=== PATIENT | male | born 1945 | race Caucasian/White ===

== ENCOUNTER 2020-01-08 08:49 | Outpatient (CLI) | payer OTHER, SELFPAY ==
--- NOTE | 2020-01-08 09:00 | CT_ITS ---
WS: [id number] Exam: CT chest wo con [id number] Date/Time of Exam: 01/08/2020 9:10 AM Reason For Exam: Pulmonary nodule DLP: 895.[address] scans at [facility] use at least one of these dose optimization techniques: automat ed exposure control; mA and/or kV adjustment per patient size (includes targeted exams where dose is matched to clinical indication); or iterative reconstruction. Comparison to outside high-resolution CT scan performed 08/02/2018. The lungs are hyperinflated with mild emphysematous changes. No suspicious pulmonary mass or nodule i dentified. There are areas of linear scarring in the bilateral lower lobes. No pleural or pericardial effusion. Coronary artery calcifications. There is ectasia of the ascending aorta measuring 4.1 cm a t greatest diameter. This is stable since previous exam. The airway is patent. No significant lymphad enopathy in the chest. Mild calcified pleural plaque formation along the lower posterior right pleura l cavity. No destructive bone lesions are seen. No chest wall defects. CT/CT chest wo con [id number] IMPRESSION: 1. No suspicious pulmonary mass or nodule. No lymphadenopathy in the chest. 2. Emphysematous changes with pulmonary hyperinflation. 3. Other nonemergent findings as detailed above.
== END 2020-01-08 08:50 | disposition home or self-care (01) ==
LOC: RADWPI 08:55
PROVIDERS: PCP Family Medicine; Visit Provider Internal Medicine Critical Care Medicine
DX: R91.1 Solitary pulmonary nodule (principal)
CPT/HCPCS: 71250

== ENCOUNTER 2020-03-23 10:03 | Outpatient (CLI) | payer OTHER, SELFPAY ==
--- NOTE | 2020-03-23 10:12 | CT_ITS ---
WS: [id number] CTA THORACIC AORTA WITH CONTRAST. HISTORY: ASCENDING ANEURYSM, FOLLOW UP ON CT CHEST TECHNIQUE: CT imaging of the thorax is performed with and without contrast. After noncontrast imaging is performed, CT angiogram is performed during injection of Omnipaque 350; 95 mL IV.. Sagittal and c oronal reconstructions, sagittal and coronal MIP imaging is submitted. All CT scans at [facility] use at least one of these dose optimization techniques: automated exposure control; mA and/o r kV adjustment per patient size (includes targeted exams where dose is matched to clinical indicatio n); or iterative reconstruction. DLP: 1504.31 mGycm COMPARISON: 01/08/2020 Mild atherosclerosis and ectasia thoracic aorta. Maximum diameter of the ascending aorta is 4.1 cm. D escending aorta is 2.9 cm at the chela. Calcified plaque and intimal thickening throughout the aorti c arch and descending aorta. No dissection. Normal caliber ascending aorta. Scattered calcifications involving the origins of the great vessels. LEFT vertebral artery arises directly from the aorta. Normal size pulmonary artery. Heart size is normal. No pericardial or pleural effusions. Hyperexpanded lungs with emphysema. There are some very mild interstitial thickening and tree-in-bud airspace disease greatest throughout the RIGHT lung is probably postinflammatory. Very mild changes o f bronchiectasis in the lower lung miramontes bilaterally. No adenopathy. Small hiatal hernia. Mild anterior wedging of T12 with no retropulsion. CT/CT angio chest [id number] IMPRESSION: 1. Ectatic but nonaneurysmal ascending aorta measuring 4.1 cm at its maximum. 2. Normal size descending aorta. 3. Chronic emphysema with tree-in-bud airspace disease on the RIGHT suggesting an acute and airways disease.
[2020-03-23 11:01] LABS: Blood Urea Nitrogen 8 mg/dL (8-23)
[2020-03-23] MEDS: iohexol 350 mg/mL 100 mL Btl IV (11:14)
== END 2020-03-23 10:04 | disposition home or self-care (01) ==
LOC: RADWPI 10:05
PROVIDERS: PCP Family Medicine; Visit Provider Family Medicine
DX: I71.2 Thoracic aortic aneurysm, without rupture (principal)
CPT/HCPCS: 71275; 82565; 84520; Q9967

== ENCOUNTER 2021-01-19 09:40 | Outpatient (CLI) | payer OTHER, SELFPAY ==
--- NOTE | 2021-01-19 | CT_ITS ---
Guided Bronchoscopy Planning CT images; total exam DLP: 1086.81 mGy-cm MTDD
== END 2021-01-19 09:41 | disposition home or self-care (01) ==
LOC: CT 09:41
PROVIDERS: PCP Family Medicine; Visit Provider Internal Medicine Critical Care Medicine
DX: J44.9 Chronic obstructive pulmonary disease, unspecified (principal)
CPT/HCPCS: 71250

== ENCOUNTER → 2021-02-11 13:29 | Outpatient (BNVA) | payer OTHER, SELFPAY | PROVIDERS: PCP Family Medicine; Visit Provider Family Medicine | DX: Z01.812 Encounter for preprocedural laboratory examination (principal); Z20.822 Contact with and (suspected) exposure to COVID-19 | CPT/HCPCS: 87635 ==

== ENCOUNTER 2021-02-17 10:44 | Outpatient (CLI) | payer OTHER, SELFPAY ==
--- NOTE | 2021-02-17 11:32 | PFTS_ITS ---
Date of Study:02/17/21 Date of Dictation: 02/17/2021 MECHANICS: Prebronchodilator forced vital capacity (FVC) is decreased. Prebronchodilator forced expiratory volume in one second (FEV1) is severely decreased. FEV1/FVC is reduced. There is no postbronchodilator study FLOW VOLUME LOOP: Sloping of expiratory limb suggestive of severe airflow obstruction LUNG VOLUMES: TLC is normal. RV is mildly suggestive of severe air trapping DIFFUSING CAPACITY FOR CARBON MONOXIDE: Moderately reduced 44% . INTERPRETATION: The prebronchodilator spirometry consistent with severe obstructive ventilatory disease. Significantly increased RV suggestive of severe air trapping. There is moderate gas transfer defect. Overall constellation of findings consistent with severe emphysema. Clinical correlation recommended. [facility]
== END 2021-02-17 10:45 | disposition home or self-care (01) ==
PROVIDERS: PCP Family Medicine; Visit Provider Internal Medicine Critical Care Medicine
DX: J44.9 Chronic obstructive pulmonary disease, unspecified (principal)
CPT/HCPCS: 94010; 94618; 94726; 94729

== ENCOUNTER → 2021-06-07 12:46 | Outpatient (BNVA) | payer OTHER, SELFPAY | PROVIDERS: PCP Family Medicine; Visit Provider Internal Medicine Critical Care Medicine | DX: J44.9 Chronic obstructive pulmonary disease, unspecified (principal); J96.11 Chronic respiratory failure with hypoxia; R91.1 Solitary pulmonary nodule; Z87.891 Personal history of nicotine dependence | CPT/HCPCS: 80048; 99214 ==

== ENCOUNTER → 2021-06-09 08:51 | Outpatient (BNVA) | payer OTHER, SELFPAY | PROVIDERS: PCP Family Medicine; Visit Provider Internal Medicine Cardiovascular Disease | DX: Z20.822 Contact with and (suspected) exposure to COVID-19 (principal) | CPT/HCPCS: 87635 ==

== ENCOUNTER 2021-06-14 13:58 | Inpatient (IN) | payer OTHER, SELFPAY ==
[2021-06-10 12:34] VITALS: BMI 27.7
[2021-06-14] VITALS (67 sets, daily range): BP systolic 124–166; BP diastolic 61–84; PULSE 74–95; RESP 12–27; TEMP 36.4–36.8; O2SAT 83–96
--- NOTE | 2021-06-14 10:00 | P.ANESASSM_ITS ---
Pre-Anesthetic Assessment Height/Weight: Height 1.75 m Weight 85.275 kg Preop Diagnosis: Severe emphysema, COPD Operation Date: 06/14/21 10:40 Proposed Procedures p Bronchoscopy for lung volume reduction 6689(Not Applicable) - Judah Echeverria MD Familial anesthetic complications: Hx of nausea and diaphoresis from morphine, otherwise no complications Was Beta Jerrell taken within 24 hours: N/A Was Clonidine taken within 24 hours: N/A Last intake: 06/13/2021 Social No alcohol and No tobacco Former smoker, asbestos exposure related lung disease per patient Exam alert, oriented x 3 and regular rate & rhythm B/L lung sounds diminished Airway Submandibular: within normal limits Cervical ROM: within normal limits Mallampati: Class II Dentition: false Pulmonary Chronic Obstructive Pulmonary Disease Hx of respiratory failure on PRN O2 at home CV/HEM None reported METS = 4 Able to go up 2 flights of stairs w/o CP, some SOB None reported Hepatic None reported GI None reported Metabolic None reported Musc/skel None reported Neuropsych None reported Anesthetic Plan ASA status: 3 (76 year old male with chronic respiratory failure on home O2) Anesthesia: Anesthesia Evaluation and General Other: We discussed risk and benefits of general anesthesia including PONV, sore throat (sometimes severe), corneal abrasion, positioning and peripheral nerve injuries, life threatening allergic reaction, post operative ICU admission requiring prolonged intubation, stroke, heart attack, , and rare incidences of recall. Patient consents to proceed with general anesthesia. Risk of > 500 ml blood loss (7ml/kg in children): No Medications/Allergies Home Medications Medication Instructions Recorded Confirmed Last Taken Type rosuvastatin 20 mg tablet 10 mg PO BEDTIME tab 12/31/19 06/10/21 Unknown History albuterol sulfate 90 mcg/actuation 1 puff INHALATION QID PRN #18 gm 04/01/20 06/10/21 Unknown Rx aerosol inhaler (Ventolin HFA) tiotropium 2.5 mcg-olodaterol 2.5 2 puff INHALATION DAILY 90 Days 03/07/21 06/10/21 Unknown Rx mcg/actuation mist for inhalation #12 g (Stiolto Respimat) Allergies Allergy/AdvReac Type Severity Reaction Status Date / Time No Known Allergies Allergy Verified 06/10/21 12:31 [facility] Anesthesia Medical History Chronic obstructive pulmonary disease Tuberculosis Surgical History H/O vasectomy History of knee replacement History of thoracic surgery Hx of cataract surgery Family History Other CAD (coronary artery disease) Cancer Diabetes Social History Smoking and tobacco status: former smoker Quit status (tobacco): has quit using tobacco Year quit tobacco: 1974 - 1PPD x 20 Years Former quit date comment: started at age 9 Alcohol intake: current Alcohol intake frequency: holidays/special occasions only Lives independently: Yes Household members: none Marital status: Single Current occupational status: retired History of recent travel: No Current gender identity: Male Data Anesthesia Cardiac Studies: No Data to Display
[2021-06-14] MEDS: sodium chloride 0.9% 1,000 ML 30 ML IV (10:16)
--- NOTE | 2021-06-14 12:07 | W.PM.OPSUD ---
Surgery/Procedure H&P Update DATE OF PROCEDURE: June 14, 2021 DATE H&P PERFORMED: 06/07/21 PREOP DIAGNOSIS: Severe emphysema, COPD PRIMARY INDICATION FOR PROCEDURE: Severe emphysema, COPD PLANNED PROCEDURE: Bronchoscopic lung volume reduction of the left lower lobe. Operation Date: 06/14/21 10:40 Proposed Procedures p Bronchoscopy for lung volume reduction 7704(Not Applicable) - Judah Echeverria MD
[2021-06-14] MEDS: lidocaine 1% INJ 20 mL XX (12:44)
--- NOTE | 2021-06-14 13:38 | PC.NURSE ---
4 size 9 valves and 2 size 7 valves placed in patients left lower lung. Valve information/identification: 1. REF: SVS-V9-00 LOT: [id number] 2. REF: SVS-V9- LOT: [id number] 3. REF: SVS-V9- LOT: [id number] 4. REF: SVS-V9- LOT: [id number] 5. REF: SVS-V7-00 LOT:[id number] 6. REF: SVS-V7-00 LOT: [id number]
--- NOTE | 2021-06-14 14:27 | PC.NURSE ---
Patient arrived to ICU at 1400. V/S stable
--- NOTE | 2021-06-14 15:30 | XR_ITS ---
WS: [id number] XR chest 1V portable [id number] REASON FOR EXAM: post bronchoscopy FINDINGS: Coarse reticular interstitial opacities throughout both lungs with irregular aeration compatible with obstructive lung disease. Multiple small occlusive devices are seen overlying the left lower lung with associated atelectasis. No left pneumothorax or hydropneumothorax. No acute abnormality of the right lung. XR/XR chest 1V portable [id number] IMPRESSION: Post bronchoscopy directed left lung procedure with no pneumothorax or hydropne umothorax.
--- NOTE | 2021-06-14 16:21 | ANE.PACU2 ---
Inpatient post-anesthesia follow up: Airway intact: Yes Vital signs: Temperature 97.6 F Pulse Rate 87 Respiratory Rate 16 Blood Pressure 148/84 Pulse Oximetry 93 Oxygen Delivery Me thod [ Nasal Cannula Current Rate & Del ramiro] Oxygen Delivery Me thod Nasal Cannula Oxygen Flow Rate [ Current Rate 3 & Delivery] Oxygen Flow Rate 2 Fraction of Inspir ed Oxygen Hydration adequate: Yes Nausea and vomiting: No Pain level: 1 Mental status: Baseline
--- NOTE | 2021-06-14 17:03 | PM.OP ---
Operative Report Date of procedure: June 14, 2021 Pre-op diagnosis: Preop Diagnosis Severe emphysema, COPD Brief History: This is 76-year-old gentleman coming in for bronchoscopic lung volume reduction of left lower lobe for severe COPD, emphysema. Procedure: Name of the procedure: Bronchoscopy inspection of the airway, endobronchial aspiration valve placement in the left lower lobe for bronchoscopic lung volume reduction. Indication: Severe emphysema, severe airflow obstruction with air trapping, chronic hypoxic respiratory failure Anesthesia: General Description of the procedure: The patient was positioned optimally. He underwent endotracheal tube placement and general anesthesia. The bronchoscope was passed through the endotracheal tube till lower trachea was visible. The lower trachea, chela, right and left mainstem bronchi anesthetized with 1% lidocaine. In a systematic way, bilateral airways were then examined. The bronchoscope was introduced into the left mainstem bronchus. The left upper lobe, lingula and lower lobe bronchi were normal. There was evidence of bronchiectasis, mild mucosal erythema and friable airways. The bronchoscope was introduced to the right mainstem bronchus. The right upper lobe, middle lobe and lower lobe bronchi were examined. Similar erythema and bronchiectasis was noted. There was mild mucus throughout the airways. Using the patented balloon, measurements were performed for the left lower lobe segmental and subsegmental bronchi. The anterobasilar, lateral and posterior segments needed total of four 9 mm valves. The superior segment was measured at the level of trifurcation of the superior segment bronchus. There are measured as 7 mm valves. Four 9 mm aspiration valves were deployed sequentially in the anterobasilar, lateral and posterior segmental bronchi. Were able to deploy to 7 mitral valves in the trifurcation of the superior segmental bronchus but we could not reach the third branch for valve placement. Complications: There is no immediate complications. Chest x-ray: Postprocedure chest x-ray revealed partial atelectasis of the left lower lobe. No pneumothorax was noted
--- NOTE | 2021-06-14 17:09 | PM.HP ---
Providers/Chief Complaint Admitting Physician: Judah Echeverria MD Primary Care Provider: Alba Longoria MD Chief Complaint: Post bronchoscopic lung volume reduction History of Present Illness This is a 76-year-old gentleman with gold class B COPD coming in for bronchoscopic lung volume reduction procedure. Patient had a CT scan evaluation in January 2021 and the left lower lobe was found to be a potential target. His pulmonary function test showed an FEV1 FVC ratio of 38% with FEV1 of 1.15 L which was 39% patient forced vital capacity of 3.02 L which is 76% of predicted.? His DLCO was moderately reduced at 57%. His latest pulmonary function test from February 2021 revealed an FEV1 FVC ratio of 38% with FEV1 of 1 L which is 34% of predicted and a forced vital capacity of 2.63 L which is 68% of predicted.? His total lung capacity is 106% and residual volume of 180%.? His DLCO is moderately reduced at 44%. The patient has no significant past medical history other than hyperlipidemia. At baseline, the patient has chronic cough, sputum production, wheezing and exertional shortness of breath and he uses Stiolto. He is also using oxygen with exertion at nighttime. The patient also has pulmonary nodule.? He has been following up with the physician at [facility] in [place] however this time he was not able to see them.? His last CT scan in March 2020 did not reveal any suspicious pulmonary nodule.? There was also no lung nodule on the CT scan for bronchoscopic lung volume reduction evaluation. The patient underwent the endoscopic lung volume reduction procedure under general anesthesia. I was able to deploy the valve in the anterobasilar, lateral and posterior segmental bronchus of the left lower lobe. However the superior segment bronchus trifurcated into 3 branches and I was able to deploy the valve into. A chest x-ray following the procedure revealed reduction in lung volume on the left side. However, the patient is going to need additional procedure to block of the entire left superior bronchus. The patient was seen and examined in the ICU. The patient was comfortable without any significant chest pain. His family was at bedside. Review of Systems Narrative: General: No fevers chills night sweats or fatigue Skin: No rash HEENT: No nasal congestion, rhinitis, sinusitis, sneezing Neck: There is no neck swelling Respiratory: Cough, sputum production, wheezing and exertional shortness of breath Cardiovascular: No chest pain, palpitation or lower extremity edema. Gastrointestinal: No abdominal pain, nausea, vomiting Musculoskeletal: No joint pain or swelling Neurological: Patient is awake alert and oriented x3, no paralysis, gross motor function is normal. Psychiatric: No anxiety or depression. Medications/Allergies Home Medications Medication Instructions Recorded Confirmed Last Taken Type rosuvastatin 20 mg tablet 10 mg PO BEDTIME tab 12/31/19 06/10/21 06/13/21 History albuterol sulfate 90 mcg/actuation 1 puff INHALATION QID PRN #18 gm 04/01/20 06/10/21 06/13/21 Rx aerosol inhaler (Ventolin HFA) tiotropium 2.5 mcg-olodaterol 2.5 2 puff INHALATION DAILY 90 Days 03/07/21 06/10/21 06/13/21 Rx mcg/actuation mist for inhalation #12 g (Stiolto Respimat) Allergies Allergy/AdvReac Type Severity Reaction Status Date / Time No Known Allergies Allergy Verified 06/10/21 12:31 PFSH Acute PFSH: Medical History Chronic obstructive pulmonary disease Tuberculosis Surgical History H/O vasectomy History of knee replacement History of thoracic surgery Hx of cataract surgery Family History Other CAD (coronary artery disease) Cancer Diabetes Social History Smoking and tobacco status: former smoker Quit status (tobacco): has quit using tobacco Year quit tobacco: 1974 - 1PPD x 20 Years Former quit date comment: started at age 9 Alcohol intake: current Alcohol intake frequency: holidays/special occasions only Lives independently: Yes Household members: none Marital status: Single Current occupational status: retired History of recent travel: No Current gender identity: Male Vitals/I&O/Wt Last Vital Signs Temp 97.6 F 06/14/21 14:05 Pulse 87 06/14/21 14:46 Resp 16 06/14/21 14:10 BP 148/84 06/14/21 14:10 Pulse Ox 93 06/14/21 14:46 Weight last 48 hrs Weight 186 lb 2 oz Physical Exam Narrative: General: Patient is awake alert and oriented, in no acute distress. Neck: No JVD Respiratory: Inspection: No visible deformity of the chest wall Palpation: Trachea is mildly deviated to the right, bilateral symmetric but reduced expansion Percussion: Bilateral tympanic percussion note both anterior and posteriorly Auscultation: Reduced breath sound bilaterally, crackles at left lower lung base, no wheezing or rhonchi Cardiovascular: Regular rate and rhythm, S1-S2 present, no murmur, no peripheral edema Abdomen: Soft, nontender, nondistended, positive bowel sound Skin: No rash Lymphatic: The axillary and inguinal lymph node groups are not examined Neuro: Mental status is normal, no gross cranial nerve deficit, normal motor and coordination. A&P Assessment and plan (1) Chronic obstructive pulmonary disease: This is a 76-year-old gentleman with gold class B COPD. His pulmonary function test is consistent with severe airflow obstruction. The patient is on Stiolto at baseline. He underwent bronchoscopic lung volume reduction of left lower lobe today. Unfortunately I was not able to occlude all airways. The plan is for him to go back to the OR tomorrow for additional blockage of the left superior segment bronchus. For now, I will start the patient on prednisone, levofloxacin. He will continue with DuoNeb and Pulmicort nebulization. DVT and GI prophylaxis. The patient will be on bedrest today. The post procedure chest x-ray did not reveal any evidence of pneumothorax. He will be monitored and managed closely in the ICU for development of pneumothorax. I will be available for any decline in his condition. The chest tube is in the room. Status: Acute (2) Chronic respiratory failure with hypoxia: The patient uses oxygen at home with exertion and at night. Will provide supplemental oxygen to maintain an oxygen saturation of 88% and above. Status: Acute Attestations Medical Necessity Statement*: The patient will need to be closely monitored and managed for high risk of developing pneumothorax. Coding Level of Care Code Acute Trade Union Official for [facility] Tim Diagnoses Chronic obstructive pulmonary disease J44.9 Chronic respiratory failure with hypoxia J96.11
[2021-06-14] MEDS: predniSONE 20 mg Tablet 40 MG PO (17:45)
[2021-06-14] MEDS: levoFLOXacin 750 mg Tablet PO (17:45)
[2021-06-14] MEDS: enoxaparin 40 mg/0.4 mL Syringe SUBCUT (17:45)
--- NOTE | 2021-06-14 18:03 | PC.NURSE ---
Patient alert and orientated no changes this shift. Family at bedside most of the afternoon. Plans to go back to surgery tomorrow for another procedure with Dr. Echeverria. NPO after midnight.
[2021-06-14] MEDS: atorvastatin 40 mg Tablet 20 MG PO (20:01)
[2021-06-14] MEDS: ipratropium-albuterol 3 mL Neb INHALATION (20:44)
[2021-06-14] MEDS: budesonide 0.5 mg/2 mL Neb INHALATION (20:44)
[2021-06-14] MEDS: ondansetron 2 mg/ML SDV 2 mL 4 MG IVP (21:06)
--- NOTE | 2021-06-14 22:06 | PC.NURSE ---
nausea and bloating have resolved.
--- NOTE | 2021-06-14 22:39 | PC.NURSE ---
Lung sounds diminished throughout, but less air movement heard throughout left lung.
[2021-06-15] VITALS (40 sets, daily range): BP systolic 108–146; BP diastolic 55–87; PULSE 68–99; RESP 10–25; TEMP 36.7–37.1; O2SAT 75–94
--- NOTE | 2021-06-15 01:26 | PC.NURSE ---
Pt ambulated to rest room on room air. Pt states that he ambulates at night on room air when home. Longer oxygen tubing provided, pt agrees to ambulate with oxygen.
--- NOTE | 2021-06-15 04:00 | XR_ITS ---
WS: [id number] XR chest 1V portable [id number] REASON FOR EXAM: Post surgical FINDINGS: Chest is unchanged compared to the previous day with small occlusive appearing devices in the medial lower left lung zone with associated presumed atelectasis. Remainder of the lung miramontes compatible with obstructive lung disease. No other acute findings. No pneumothorax. XR/XR chest 1V portable [id number] IMPRESSION: Stable chest.
[2021-06-15] MEDS: ipratropium-albuterol 3 mL Neb INHALATION ×4 (04:33→20:08)
--- NOTE | 2021-06-15 04:37 | PC.NURSE ---
Pt reports that he coughed up a raisin sized blood clot. In the future, pt will show nursing staff any sputum.
[2021-06-15] MEDS: budesonide 0.5 mg/2 mL Neb INHALATION ×2 (08:34→20:08)
[2021-06-15 09:28] LABS: Basophils % 0.3 %; Hematocrit 40.9 % (42.0-52.0); Hemoglobin 12.9 g/dL (11.7-16.6); Lymphocytes # 1.3 10^3/uL (0.8-4.8); Lymphocytes % 12.7 %; Mean Corpuscular HGB Conc 31.5 g/dL (30.0-36.0); Mean Corpuscular Hemoglobin 29.3 pg (28.0-34.0); Mean Corpuscular Volume 92.7 fl (80-94); Mean Platelet Volume 9.8 fL (7.4-10.4); Monocytes # 0.8 10^3/uL (0.2-0.9); Monocytes % 7.8 %; Neutrophils # 8.26 10^3/uL (1.8-7.7); Neutrophils % 78.6 %; Nucleated Red Blood Cells % 0 %; Platelet Count 244 10^3/cmm (130-400); Red Blood Count 4.41 10^6/uL (4.1-5.3); Red Cell Distribution Width 12.6 % (12.1-15.1); White Blood Count 10.5 10^3/uL (4.0-10.0)
[2021-06-15 09:49] LABS: Alanine Aminotransferase 17 U/L (0-41); Alkaline Phosphatase 65 IU/L (40-130); Anion Gap 14.3 (5-19); Aspartate Amino Transferase 15 U/L (0-40); Blood Urea Nitrogen 14 mg/dL (8-23); Calcium 9.4 mg/dL (8.5-10.5); Carbon Dioxide 27 mmol/L (22-29); Chloride 104 mmol/L (98-107); Globulin 3.3 g/dL (1.3-4.6); Glucose 161 mg/dL (65-115); Osmolality Calculated 296 mOsm/kg (285-295); Potassium 4.3 mmol/L (3.5-5.1); Sodium 141 mmol/L (136-145); Total Bilirubin 0.2 mg/dL (0.15-1.2); Total Protein 7.3 g/dL (6.6-8.7)
[2021-06-15 10:01] LABS: Glucose Point of Care 144 mg/dL (70-110)
[2021-06-15] MEDS: predniSONE 20 mg Tablet 40 MG PO (10:04)
[2021-06-15] MEDS: pantoprazole DR 40 mg Tablet PO (10:04)
[2021-06-15] MEDS: levoFLOXacin 750 mg Tablet PO (10:05)
--- NOTE | 2021-06-15 12:09 | PC.CHAP ---
Pastoral Care Encounter/Spiritual Assessment Type of Contact [] Declined maritime engineer visit [] Patient/Family/Request visit [] Outpatient visit [] Follow-up visit [] Physician referral [] Code/Alert [x] Routine visit [] Staff referral [] Actively dying [] Patient sleeping [] Family support [] [] Out of room [] Palliative care [] [] Receiving care in room [] Pre-surgical visit [] Trauma [] Long length of stay [x] ICU visit [] Other: Relational/Emotional Strength [] Patient feels connected with others/family/visitors/staff [] Distress [] Loneliness/isolation [] Abandonment Spirituality of Patient [] Person of [place] [] Attends Religion of their [place] [] Believes in Prayer [] Reads Bible or Mormon materials [] There are Spiritual issues to be addressed Turner Machine Operator Interventions [x] Prayer [] Active listening [] Non-anxious presence [] Spiritual/emotional support [] Crisis/trauma care [] Spiritual counseling [] Bereavement support [] Provided bereavement packet [] Provided Bible/devotional materials [] Provided toy/stuffed animal, coloring book to patient or family member [] Provided Communion [] Anointing/Hermon [] Salvation [x] Completed spiritual assessment [] Other: Impact on Illness or Injury [] Angry [] Fearful [] Anxious [] Often cries [] Exhaustion [] Unable to work [] Unable to attend shinto [] Unable to walk/stand [] Unable to read [] Unable to drive [] Unable to eat/drink [] Unable to sleep [] Unable to be with family [] Patient intubated [] Other: Summary Time spent with patient
--- NOTE | 2021-06-15 12:48 | P.ANESUD_ITS ---
Pre-Anesthetic Update Pre-Anesthetic Assessment: Date of Surgery/Procedure: 06/15/21 Preop Delores gnosis: Severe emphysema, COPD Proposed Procedure: Operation Date: 06/14/21 10:40 Proposed Procedures p Bronchoscopy for lung volume reduction 7704(Not Applicable) - Judah Echeverria MD Operation Date: 06/15/21 12:35 Proposed Procedures p Endobronchial Valve Placement(Not Applicable) - Judah Echeverria MD Any changes to Pre-Anesthetic Assessment?: No Last Intake: Intake Last Liquid Date 06/13/21 Last Liquid Time 23:45 Last Solid Date 06/13/21 Last Solid Time 19:00 Labs Last 48hrs: Short CBC 06/15/21 Range/Units 09:01 WBC 10.5 H (4.0-10.0) 10^3/ uL Hgb 12.9 (11.7-16.6) g/dL Hct 40.9 L (42.0-52.0) % MCV 92.7 (80-94) fl Plt Count 244 (130-400) 10^3/c mm Neut % (Auto) 78.6 % Neut # (Auto) 8.26 H (1.8-7.7) 10^3/u L BMP 06/15/21 09:01 Sodium 141 Potassium 4.3 Chloride 104 Carbon Dioxide 27 BUN 14 Creatinine 0.6 L Glucose 161 H Calcium 9.4 Liver Function 06/15/21 Range/Units 09:01 Total Bilirubin 0.2 (0.15-1.2) mg/dL AST 15 (0-40) U/L ALT 17 (0-41) U/L Alkaline Phosphata se 65 (40-130) IU/L Albumin 4.0 (3.5-5.2) g/dL Vitals: Temperature 98.1 F 06/15/21 08:00 Temperature Source Oral 06/15/21 08:00 Pulse Rate 94 06/15/21 12:30 Pulse Rhythm 06/15/21 08:00 Pulse Strength 3+ Normal 06/15/21 08:00 Respiratory Rate 16 06/15/21 12:30 Respiratory Effort Non-Labored 06/15/21 08:00 Respiratory Depth Normal 06/15/21 08:00 Respiratory Patter n 06/14/21 14:05 Blood Pressure 124/62 06/15/21 12:30 Blood Pressure Christiane n 82 06/15/21 12:30 Pulse Oximetry 92 06/15/21 12:30 Oxygen Delivery Me thod 06/15/21 08:40 Oxygen Flow Rate 2 06/15/21 06:00 Fraction of Inspir ed Oxygen 2 06/15/21 08:40 Cardiac Studies: No Data to Display
[2021-06-15] MEDS: sodium chloride 0.9% 1,000 ML 30 ML IV (13:10)
[2021-06-15] MEDS: lidocaine 1% INJ 20 mL XX (13:20)
--- NOTE | 2021-06-15 13:45 | PC.NURSE ---
Pt transferred back to ICU 9 via bed. Arrived in room at 1333. Denies pain or needs. VSS. Bedside report given regarding procedure.
--- NOTE | 2021-06-15 14:22 | XRR_ITS ---
PROCEDURE INFORMATION: Exam: XR Chest Exam date and time: 06/15/2021 2:31 PM Age: 76 years old Clinical indication: Device placement; Other: Post bronchoscopy; Prior surgery; Surgery date: Post-operative (0-2 days); Additional info: Post procedure TECHNIQUE: Imaging protocol: XR of the chest. Views: 1 view. COMPARISON: CR XR chest 1V portable [id number] 06/15/2021 4:26 AM FINDINGS: Lungs: Mild coarsening of the lung parenchyma. No consolidation. Occlusive devices again seen overlying the left lower lung. Pleural spaces: No pleural effusion. No pneumothorax. Heart/Mediastinum: No cardiomegaly. Bones/joints: Visualized osseous structures are intact. XR/XR chest 1V portable [id number] IMPRESSION: Stable exam, no significant interval change.
--- NOTE | 2021-06-15 14:34 | P.OP_ITS ---
Operative Report Date of procedure: June 15, 2021 Pre-op diagnosis: Preop Diagnosis Severe emphysema, COPD Preop Diagnosis Severe emphysema, COPD Brief History: This is a 76-year-old gentleman who underwent bronchoscopic lung volume reduction of the left lower lobe yesterday coming back for a repeat procedure for occlusion of the left superior segment of the lower lobe endobronchial valve placement. Procedure: Name of the procedure: Bronchoscopy inspection of the airway, endobronchial aspiration valve placement in the superior segment of left lower lobe. Indication: Severe emphysema, severe airflow obstruction with air trapping, chronic hypoxic respiratory failure Anesthesia: General Description of the procedure: The patient was positioned optimally. He underw ent endotracheal tube placement and general anesthesia. The bronchoscope was passed through the endotracheal tube till lower trachea was visible. The lower trachea, chela, right and left mainstem bronchi anesthetized with 1% lidocaine. In a systematic way, bilateral airways were then examined. The bronchoscope was introduced to the right mainstem bronchus. The right upper lobe, middle lobe an d lower lobe bronchi were examined and no abnormalities were identified. Bronchoscope was introduced to the left mainstem bronchus. The left upper lobe, lingular segment were examined up to third subsegmental level without any abnormalities. The previously deployed endobronchial valves in the anterior, lateral and posterior segment of the left lower lobe were in appropriate place. The 2 subsegmental valves are also in appropriate place in the superior segment. Yesterday using the patented balloon, the 9 mm valve was found to be appropriate size for the superior segment of the left lower lobe. Today the valve was deployed without any difficulty. The valve was in good position after deployment. Complications: There is no immediate complications. Chest x-ray: Postprocedure x-ray is pending.
--- NOTE | 2021-06-15 14:38 | PM.PN ---
Subjective Subjective: The patient was seen and examined multiple times today. He was doing well this morning without any difficulty. He had some indigestion symptoms last night. The patient underwent the endobronchial valve placement of the superior segment of the left lower lobe today which was uneventful. Postprocedure, the patient was seen in the ICU. He was resting in bed comfortably without any difficulty at all. Vitals/I&O/Wt Last Vital Signs Temp 98.1 F 06/15/21 08:00 Pulse 87 06/15/21 14:36 Resp 16 06/15/21 14:36 BP 113/71 06/15/21 14:00 Pulse Ox 94 06/15/21 14:36 06/14/21 06/15/21 06/15/21 22:59 06:59 14:59 Intake Total 780 / 780 600 / 600 Output Total 0 / 0 Balance 780 / 780 600 / 600 Weight last 48 hrs Weight 186 lb 2 oz Physical Exam Narrative: General: Patient is awake alert and oriented, in no acute distress. Neck: No JVD Respiratory: Inspection: No visible deformity of the chest wall Palpation: Trachea is midline, reduced expansion on the left compared to the right Percussion: Bilateral tympanic percussion note both anterior and posteriorly Auscultation: Reduced breath sound bilaterally, crackles at left lower lung base, no wheezing or rhonchi Cardiovascular: Regular rate and rhythm, S1-S2 present, no murmur, no peripheral edema Abdomen: Soft, nontender, nondistended, positive bowel sound Skin: No rash Lymphatic: The axillary and inguinal lymph node groups are not examined Neuro: Mental status is normal, no gross cranial nerve deficit, normal motor and coordination. Data : 06/15/21 09:01 06/15/21 09:01 A&P Assessment and plan (1) Chronic obstructive pulmonary disease: This is a 76-year-old gentleman with gold class B COPD. His pulmonary function test is consistent with severe airflow obstruction. The patient is on Stiolto at baseline. He underwent bronchoscopic lung volume reduction of left lower lobe first time on June 14. Unfortunately, a complete closure of the superior segment of the left lower lobe was not achieved. The patient had undergone the second procedure today with successful occlusion of the superior segment of left lower lobe. He is doing very well. Currently, the patient on prednisone, levofloxacin. He will continue with DuoNeb and Pulmicort nebulization. DVT and GI prophylaxis. The patient can get out of bed and has bathroom privileges from today. No pneumothorax in the past 24 hours. I am awaiting for his chest x-ray now. Status: Acute (2) Chronic respiratory failure with hypoxia: The patient uses oxygen at home with exertion and at night. Currently is on 2 L oxygen. Status: Acute Attestations Medical Necessity Statement*: The patient will be monitored and managed closely for 2 more days in the ICU. Coding Level of Care Code Acute Digital Product Specialist for Regina Dumont Diagnoses Chronic obstructive pulmonary disease J44.9 Chronic respiratory failure with hypoxia J96.11
[2021-06-15] MEDS: enoxaparin 40 mg/0.4 mL Syringe SUBCUT (17:16)
[2021-06-15] MEDS: atorvastatin 40 mg Tablet 20 MG PO (21:21)
[2021-06-15] MEDS: ondansetron 2 mg/ML SDV 2 mL 4 MG IVP (21:21)
[2021-06-16] VITALS (16 sets, daily range): BP systolic 119–151; BP diastolic 62–100; PULSE 78–97; RESP 14–24; TEMP 36.8–36.9; O2SAT 90–95
[2021-06-16] MEDS: ondansetron 2 mg/ML SDV 2 mL 4 MG IVP ×2 (03:46→09:56)
--- NOTE | 2021-06-16 06:03 | PC.NURSE ---
Notified Dr. Echeverria that patient has been having nausea on and off during the night and zofran has been given twice with the last dose approx 2 hours ago. Notified that patient is currently throwing up old bloody looking emesis. Orders given to change protonix to IV, given maalox, draw CBC and CMP, do EKG and Chest x-ray.
--- NOTE | 2021-06-16 06:06 | ECG_ITS ---
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 Measurements Intervals [place] Rate: 84 P: 70 HI: 145 QRS: 3 QRSD: 106 T: -5 QT: 369 QTc: 436 Interpretive Statements SINUS RHYTHM WITH OCCASIONAL VENTRICULAR PREMATURE COMPLEXES POSSIBLE LEFT ATRIAL ENLARGEMENT [-0.1mV P-WAVE IN V1/V2] POSSIBLE INFERIOR MYOCARDIAL INFARCTION , PROBABLY OLD [30 ms Q WAVE IN II/aVF] No previous ECG available for comparison Electronically Signed On 06-16-2021 16:15:33 CDT by Luc Valencia M.D. [email or web address]
--- NOTE | 2021-06-16 06:07 | XR_ITS ---
WS: [id number] XR chest 1V portable [id number] REASON FOR EXAM: COPD, s/p endobronchial valve FINDINGS: Small endobronchial devices in the left lower lung (no change in position) with distal distal atelect asis which has developed a sharp border consistent with subsegmental collapse. Chest is otherwise stable compared to 06/15/2021. No left pneumothorax or left pleural effusion. XR/XR chest 1V portable [id number] IMPRESSION: Progressive atelectasis distal to the endobronchial devices.
[2021-06-16] MEDS: levoFLOXacin 750 mg Tablet PO (06:26)
[2021-06-16] MEDS: pantoprazole 40 mg SDV IVP ×2 (06:28→18:00)
[2021-06-16] MEDS: alum-mag-hydroxide-sime 30 mL UDC PO ×2 (06:28→09:38)
[2021-06-16 07:09] LABS: Basophils % 0.1 %; Hematocrit 39.3 % (42.0-52.0); Hemoglobin 12.6 g/dL (11.7-16.6); Lymphocytes % 6.9 %; Mean Corpuscular HGB Conc 32.1 g/dL (30.0-36.0); Mean Corpuscular Hemoglobin 29.2 pg (28.0-34.0); Mean Platelet Volume 9.9 fL (7.4-10.4); Monocytes # 1.3 10^3/uL (0.2-0.9); Neutrophils # 11.64 10^3/uL (1.8-7.7); Neutrophils % 83.6 %; Nucleated Red Blood Cells % 0 %; Platelet Count 253 10^3/cmm (130-400); Red Blood Count 4.32 10^6/uL (4.1-5.3); Red Cell Distribution Width 12.9 % (12.1-15.1); White Blood Count 13.9 10^3/uL (4.0-10.0)
[2021-06-16 07:36] LABS: Alanine Aminotransferase 13 U/L (0-41); Alkaline Phosphatase 60 IU/L (40-130); Aspartate Amino Transferase 12 U/L (0-40); Blood Urea Nitrogen 17 mg/dL (8-23); Calcium 9.4 mg/dL (8.5-10.5); Carbon Dioxide 30 mmol/L (22-29); Chloride 102 mmol/L (98-107); Globulin 2.4 g/dL (1.3-4.6); Glucose 144 mg/dL (65-115); Osmolality Calculated 294 mOsm/kg (285-295); Sodium 140 mmol/L (136-145); Total Bilirubin 0.2 mg/dL (0.15-1.2); Total Protein 6.4 g/dL (6.6-8.7)
--- NOTE | 2021-06-16 14:51 | P.PN_ITS ---
Subjective Subjective: The patient was seen and examined this morning. Overnight he did well however this morning he was experiencing nausea, retching with few episodes of vomiting. With the vomited material dark clotted blood was noted. He was given Zofran, oral antiacid and the oral proton pump inhibitor was switch ed to IV. The patient reports no significant chest pain. Chest x-ray this morning revealed progressive atelectasis of the left lower lobe without any evidence of pneumothorax. The patient participated with physical therapy today without much difficulty. Medications: Reviewed: Yes Vitals/I&O/Wt Last Vital Signs Temp 98.2 F 06/16/21 04:00 Pulse 90 06/16/21 12:00 Resp 19 H 06/16/21 12:00 BP 151/100 06/16/21 08:00 Pulse Ox 91 06/16/21 12:00 06/15/21 06/16/21 06/16/21 22:59 06:59 14:59 Intake Total 60 / 660 300 / 960 Balance 60 / 660 300 / 960 Weight last 48 hrs Weight 188 lb Physical Exam Narrative: General: Patient is awake alert and oriented, in no acute distress. Neck: No JVD Respiratory: Inspection: No visible deformity of the chest wall Palpation: Trachea is midline, reduced expansion on the left compared to the right Percussion: Bilateral tympanic percussion note both anterior and posteriorly Auscultation: Reduced breath sound bilaterally, crackles at left lower lung base, no wheezing or rhonchi Cardiovascular: Regular rate and rhythm, S1-S2 present, no murmur, no peripheral edema Abdomen: Soft, nontender, nondistended, positive bowel sound Skin: No rash Lymphatic: The axillary and inguinal lymph node groups are not examined Neuro: Mental status is normal, no gross cranial nerve deficit, normal motor and coordination. Data : 06/16/21 06:38 06/16/21 06:38 Other data: I have reviewed the patient's laboratory, radiologic data A&P Assessment and plan (1) Chronic obstructive pulmonary disease: This is a 76-year-old gentleman with gold class B COPD. His pulmonary function test is consistent with severe airflow obstruction. He underwent bronchoscopic lung volume reduction of left lower lobe first time on June 14. Unfortunately, a complete closure of the superior segment of the left lower lobe was not achieved. The patient had undergone the second procedure on June 15 with successful occlusion of the superior segment of left lower lobe. The x-ray this morning revealed ongoing atelectasis of the left lower lobe. There has been no development of pneumothorax. At this point, the patient does not seem to be suffering from an episode of acute exacerbation. I am going to discontinue the antibiotic and the prednisone. The patient is going to start using his Stiolto. The Pulmicort and standing DuoNeb nebulization has been discontinued. The patient will participate in physical therapy today and the plan is to discharge him tomorrow. Status: Acute (2) Chronic respiratory failure with hypoxia: The patient uses oxygen at home with exertion and at night. He is currently using 3 L of oxygen. Overall the patient seems to be doing better. Status: Acute (3) Nausea and vomiting: The patient had experienced nausea and vomiting this morning. He had similar symptoms yesterday as well. This is likely secondary to medications, prednisone, and levofloxacin. Now that they have been discontinued I think the patient is going to be okay. He did vomit some dark clotted blood this is likely secondary to the bleeding during the bronchoscopy procedure before the patient likely swallowed the clotted blood in the past. His hemoglobin has remained stable. No further work-up is necessary for this at this time. Status: Acute Attestations Medical Necessity Statement*: Tonjulius is his third night following the b ronchoscopic lung volume reduction. The plan is for him to be discharged tomorrow morning after his chest x-ray. Coding Level of Care Code Acute Marketing Teacher for Regina Dumont Diagnoses Chronic obstructive pulmonary disease J44.9 Chronic respiratory failure with hypoxia J96.11 Nausea and vomiting R11.2
[2021-06-16] MEDS: enoxaparin 40 mg/0.4 mL Syringe SUBCUT (18:00)
--- NOTE | 2021-06-16 23:30 | PC.NURSE ---
Atorvastatin/Vitals When presenting patient with bedtime medication of 20 mg atorvastatin, patient stated I already took that. The doctor told me to take my home meds today since I am going home tomorrow. When asked about medications patient administered to self from personal stock, patient stated he used his proair and took 20 mg of Rosuvastatin at 1730. Medication not administered. Dr. Echeverria notified and clarification provided that patient may use his proair from home but not other medications. Education provided and patient verbalized understanding. Additionally, information relayed in patient report that vitals may be acquired Q 4 hours; Order verified with Dr. Echeverria.
[2021-06-17] VITALS (25 sets, daily range): BP systolic 121–144; BP diastolic 67–77; PULSE 77–93; RESP 15–23; TEMP 36.7–36.8; O2SAT 89–97; BMI 27.4
--- NOTE | 2021-06-17 01:40 | PC.NURSE ---
Tylenol Patient complaining of headache rated 6 on a 1-10 numerical pain scale. No PRN pain medication available. Dr. Echeverria contacted and telephone order received for 650 mg PO tylenol PRN Q 4 hours for pain. Medication administered per MAY.
[2021-06-17] MEDS: acetaminophen 325 mg Tablet 650 MG PO ×2 (01:57→19:04)
[2021-06-17] MEDS: ondansetron 2 mg/ML SDV 2 mL 4 MG IVP (02:00)
[2021-06-17] MEDS: pantoprazole 40 mg SDV IVP (05:57)
--- NOTE | 2021-06-17 06:47 | XR_ITS ---
WS: [id number] PORTABLE CHEST HISTORY: Evaluation for pneumothorax COMPARISON: 06/16/2021 There is a small LEFT apical pneumothorax of approximately 10%. Pneumothorax is also noted over the L EFT costophrenic angle. Hyperinflated lungs. Mild blunting of the RIGHT costophrenic angle. Small RIGHT pleural effusion. Cardiac size: Normal. Mediastinum/Aorta: Mild atherosclerosis aorta. Several clips are noted centered over the LEFT hilum. No osseous abnormality seen. XR/XR chest 1V portable [id number] IMPRESSION: 1. Small LEFT pneumothorax, 10%. 2. Chronic emphysema. 3. No pneumonia.
--- NOTE | 2021-06-17 09:11 | PM.PN ---
Subjective Subjective: The patient was seen and examined this morning. He had been doing very well without any significant complaints. He did have episodes of headache last night. Mild soreness in the left chest. The patient was ready to go home today. Unfortunately, chest x-ray this morning revealed small left-sided pneumothorax without any evidence of tension. The patient is also not symptomatic from it. He is able to ambulate and confirms that his ambulation is better than before. Medications: Reviewed: Yes Vitals/I&O/Wt Last Vital Signs Temp 98.1 F 06/17/21 04:00 Pulse 92 06/17/21 08:00 Resp 23 H 06/17/21 08:00 BP 143/70 06/17/21 09:00 Pulse Ox 89 L 06/17/21 08:00 06/16/21 06/17/21 06/17/21 22:59 06:59 14:59 Intake Total 100 / 300 0 / 0 Balance 100 / 300 0 / 0 Weight last 48 hrs Weight 186 lb Weight 188 lb Physical Exam Narrative: General: Patient is awake alert and oriented, in no acute distress. Neck: No JVD Respiratory: Inspection: No visible deformity of the chest wall Palpation: Trachea is midline, reduced expansion on the left compared to the right Percussion: Bilateral tympanic percussion note both anterior and posteriorly Auscultation: Reduced breath sound bilaterally, crackles at left lower lung base, no wheezing or rhonchi Cardiovascular: Regular rate and rhythm, S1-S2 present, no murmur, no peripheral edema Abdomen: Soft, nontender, nondistended, positive bowel sound Skin: No rash Lymphatic: The axillary and inguinal lymph node groups are not examined Neuro: Mental status is normal, no gross cranial nerve deficit, normal motor and coordination. Data : 06/16/21 06:38 06/16/21 06:38 A&P Assessment and plan (1) Chronic obstructive pulmonary disease: This is a 76-year-old gentleman with gold class B COPD. His pulmonary function test is consistent with severe airflow obstruction. He underwent bronchoscopic lung volume reduction of left lower lobe first time on June 14. Unfortunately, a complete closure of the superior segment of the left lower lobe was not achieved. The patient had undergone the second procedure on June 15 with successful occlusion of the superior segment of left lower lobe. Chest x-ray this morning revealed small left-sided pneumothorax, estimated to be approximately 10% according to the radiologist read. No evidence of tension and the patient is not symptomatic at all. For now, I will follow this up with repeat imaging. He will get a repeat chest x-ray at 2 PM followed by 1 at 10 PM tonight. If the pneumothorax remains stable or gets better he will be ready for discharge tomorrow. Patient will continue with his home inhaler, Stiolto and as needed albuterol. Status: Acute (2) Chronic respiratory failure with hypoxia: The patient was using oxygen at home with exertion and at night. He is currently using 3 L of oxygen. Overall the patient seems to be doing better. Status: Acute (3) Nausea and vomiting: This is better controlled now. He has mild symptoms but did not ask for any Zofran. We will continue with supportive therapy. Status: Acute Attestations Medical Necessity Statement*: Plan for discharge tomorrow if the pneumothorax remained stable in the next 24 hours. Coding Level of Care Code Acute Soldering Machine Tender for Regina Dumont Diagnoses Chronic obstructive pulmonary disease J44.9 Chronic respiratory failure with hypoxia J96.11 Nausea and vomiting R11.2
--- NOTE | 2021-06-17 10:31 | PC.NURSE ---
Dr. Echeverria rounded this morning, discussed POC with patient and patient will remain in ICU another night due to small pnuemothorax developing.
--- NOTE | 2021-06-17 10:44 | PC.CHAP ---
Pastoral Care Encounter/Spiritual Assessment Type of Contact [] Declined racing manager visit [] Patient/Family/Request visit [] Outpatient visit [] Follow-up visit [] Physician referral [] Code/Alert [x] Routine visit [] Staff referral [] Actively dying [] Patient sleeping [] Family support [] [] Out of room [] Palliative care [] [x] Receiving care in room [] Pre-surgical visit [] Trauma [] Long length of stay [x] ICU visit [x] Other: setting on side of bed Relational/Emotional Strength [] Patient feels connected with others/family/visitors/staff [] Distress [] Loneliness/isolation [] Abandonment Spirituality of Patient [] Person of [place] [] Attends Caodaism of their [place] [] Believes in Prayer [] Reads Bible or Gnosticist materials [] There are Spiritual issues to be addressed Nipple Threader Interventions [x] Prayer [] Active listening [] Non-anxious presence [] Spiritual/emotional support [] Crisis/trauma care [] Spiritual counseling [] Bereavement support [] Provided bereavement packet [] Provided Bible/devotional materials [] Provided toy/stuffed animal, coloring book to patient or family member [] Provided Communion [] Anointing/[place] [] Salvation [x] Completed spiritual assessment [] Other: Impact on Illness or Injury [] Angry [] Fearful [] Anxious [] Often cries [] Exhaustion [] Unable to work [] Unable to attend protestant [] Unable to walk/stand [] Unable to read [] Unable to drive [] Unable to eat/drink [] Unable to sleep [] Unable to be with family [] Patient intubated [] Other: Summary Time spent with patient
--- NOTE | 2021-06-17 14:00 | XR_ITS ---
WS: [id number] XR chest 1V portable [id number] REASON FOR EXAM: Pneumothorax FINDINGS: Left pneumothorax unchanged compared to this same day at 4:21 AM. Endobronchial devices and atelectasis in the left lower lung remain unchanged. Emphysematous changes noted in the right lower lung. XR/XR chest 1V portable [id number] IMPRESSION: Stable abnormal chest.
[2021-06-17] MEDS: enoxaparin 40 mg/0.4 mL Syringe SUBCUT (16:53)
--- NOTE | 2021-06-17 18:25 | PC.NURSE ---
Dr. Echeverria rounded again, no changes in size of pneumo, plans to DC home tomorrow per doctor as long as all safety needs are met.
--- NOTE | 2021-06-17 19:45 | PC.NURSE ---
PO Zofran Day shift nurse reported removing patient's right AC IV due to occlusion; no IV inserted due to possible pending discharge in the morning. Due to frequent nausea in hospital stay and all PRN nausea medication being ordered IVP, Dr. Echeverria contacted and telephone order received for PO 4 mg Zofran Q 4 hours PRN. Additional telephone order for chest xray at 0500 on 06/18/21 received. Orders placed.
[2021-06-17] MEDS: atorvastatin 40 mg Tablet 20 MG PO (20:06)
--- NOTE | 2021-06-17 21:03 | PC.NURSE ---
Hygiene Patient able to bathe self with standby entry level assistant manager. New linens and gown applied. Patient ambulated from bed to the bathroom and back with no issues. All vitals stable. No further needs stated at this time.
[2021-06-18] VITALS (13 sets, daily range): BP systolic 106–131; BP diastolic 51–62; PULSE 70–97; RESP 16–22; TEMP 36.8–36.9; O2SAT 92–95; BMI 27.0
[2021-06-18] MEDS: acetaminophen 325 mg Tablet 650 MG PO (02:48)
--- NOTE | 2021-06-18 05:00 | XRR_ITS ---
PROCEDURE INFORMATION: Exam: XR Chest Exam date and time: 06/18/2021 4:41 AM Age: 76 years old Clinical indication: Prior surgery; Surgery date: 3-7 days post-operative; Surgery type: Bronchoscopy; Patient HX: F/u pneumothorax TECHNIQUE: Imaging protocol: XR of the chest. Views: 1 view. Total images: 1 COMPARISON: CR XR chest 1V portable [id number] 06/17/2021 2:07 PM FINDINGS: Lungs: Bibasilar opacities are again noted and appear unchanged from the prior exam. Pleural spaces: Small left pneumothorax unchanged. Heart/Mediastinum: Heart size is stable when compared to the prior exam. Bones/joints: Unremarkable. Other findings: Stable postsurgical changes. XR/XR chest 1V portable [id number] IMPRESSION: 1. Bibasilar opacities are again noted and appear unchanged from the prior exam. 2. Small left pneumothorax unchanged.
--- NOTE | 2021-06-18 09:00 | PC.NURSE ---
Dr. Echeverria at bedside, gave discharge to home orders, no medication changes, no activity changes Discharge orders discussed with patient, patient signed discharge paperwork
--- NOTE | 2021-06-18 09:02 | PM.DCS ---
Discharge Providers Date of Admission: 06/14/21 13:58 Date of Discharge: June 18, 2021 Attending Provider at Admission: Judah Echeverria MD Attending Provider at Discharge: Judah Echeverria MD Primary Care Provider: Alba Longoria MD Diagnoses at Discharge Discharge Diagnosis (1) Chronic obstructive pulmonary disease: Details from hospital stay: The patient has gold class B COPD. His pulmonary function test is consistent with severe airflow obstruction, air trapping. The patient has undergone bronchoscopic lung volume reduction of left lower lobe. This was complicated by a small left-sided pneumothorax for which he did not require any chest tube insertion. The pneumothorax has remained stable over the past 24 hours. At this time the patient is ready for discharge. He will continue with his Stiolto and as needed albuterol. Status: Acute (2) Chronic respiratory failure with hypoxia: Details from hospital stay: The patient has chronic hypoxic respiratory failure. He was using 3 L of oxygen at home. Currently he is on 4. I believe with time regarding the able to come down on this. Status: Acute (3) Nausea and vomiting: Details from hospital stay: Nausea and vomiting has largely subsided. No specific intervention is necessary for this. Have asked the patient to take Maalox or Mylanta if he needs to. Status: Acute (4) Hyperlipidemia: Details from hospital stay: The patient will continue with his home statin. Status: Acute Reason for Visit Reason for Visit: Post bronchoscopic lung volume reduction Brief History: This is 76-year-old gentleman who was admitted to the intensive care unit after undergoing bronchoscopic lung volume reduction of left lower lobe. The patient has gold class B COPD with severe airflow obstruction on pulmonary function test. Hospital Course Hospital Course The patient underwent his initial procedure on June 14. At that time the occlusion of all segmental bronchus of the left lower lobe could not be achieved. The patient went back for occlusion of the superior segment of the left lower lobe on June 15. Following the procedure the patient did very well. He was initially treated with corticosteroid and Levaquin which was discontinued after 48 hours. The patient developed a small pneumothorax on the left side that was identified on morning chest x-ray on June 17. Over the past 24 hours there had been no worsening of the pneumothorax. This morning, the patient is in good spirits. He has mild cough with minimal blood-tinged sputum. The patient tells me that his shortness of breath and exertional dyspnea is better since the procedure. Currently he is using 4 L oxygen. Physical Exam Narrative: General: Patient is awake alert and oriented, in no acute distress. Neck: No JVD Respiratory: Inspection: No visible deformity of the chest wall Palpation: Trachea is midline, reduced expansion on the left compared to the right Percussion: Bilateral tympanic percussion note both anterior and posteriorly Auscultation: Reduced breath sound bilaterally, no crackles wheezing or rhonchi Cardiovascular: Regular rate and rhythm, S1-S2 present, no murmur, no peripheral edema Abdomen: Soft, nontender, nondistended, positive bowel sound Skin: No rash Lymphatic: The axillary and inguinal lymph node groups are not examined Neuro: Mental status is normal, no gross cranial nerve deficit, normal motor and coordination. Discharge Data Studies Completed and Pending Completed Studies During Hospitalization Category Date Time Status XR chest 1V portable [id number] Routine Exams 06/15/21 04:00 Completed XR chest 1V portable [id number] Routine Exams 06/15/21 14:22 Completed XR chest 1V portable [id number] Routine Exams 06/16/21 06:07 Completed XR chest 1V portable [id number] Routine Exams 06/17/21 06:47 Completed XR chest 1V portable [id number] Routine Exams 06/17/21 14:00 Completed XR chest 1V portable [id number] Routine Exams 06/18/21 05:00 Completed XR chest 1V portable [id number] Stat Exams 06/14/21 15:30 Completed Radiology Impressions Chest X-Ray 06/18/21 05:00 IMPRESSION: 1. Bibasilar opacities are again noted and appear unchanged from the prior exam. 2. Small left pneumothorax unchanged. Laboratory Results WBC 13.9 10^3/uL (4.0-10.0) H 06/16/21 06:38 RBC 4.32 10^6/uL (4.1-5.3) 06/16/21 06:38 Hgb 12.6 g/dL (11.7-16.6) 06/16/21 06:38 Hct 39.3 % (42.0-52.0) L 06/16/21 06:38 MCV 91.0 fl (80-94) 06/16/21 06:38 MCH 29.2 pg (28.0-34.0) 06/16/21 06:38 MCHC 32.1 g/dL (30.0-36.0) 06/16/21 06:38 RDW 12.9 % (12.1-15.1) 06/16/21 06:38 Plt Count 253 10^3/cmm (130-400) 06/16/21 06:38 MPV 9.9 fL (7.4-10.4) 06/16/21 06:38 Neut % (Auto) 83.6 % 06/16/21 06:38 Lymph % (Auto) 6.9 % 06/16/21 06:38 Callaway % (Auto) 9.0 % 06/16/21 06:38 Eos % (Auto) 0.0 % 06/16/21 06:38 Baso % (Auto) 0.1 % 06/16/21 06:38 Neut # (Auto) 11.64 10^3/uL (1.8-7.7) H 06/16/21 06:38 Lymph # (Auto) 1.0 10^3/uL (0.8-4.8) 06/16/21 06:38 Callaway # (Auto) 1.3 10^3/uL (0.2-0.9) H 06/16/21 06:38 Eos # (Auto) 0.0 10^3/uL (0.0-0.8) 06/16/21 06:38 Baso # (Auto) 0.0 10^3/uL (0.0-0.1) 06/16/21 06:38 Nucleated RBC % (auto) 0 % 06/16/21 06:38 Nucleated RBCs # 0.0 /100WBC 06/16/21 06:38 Sodium 140 mmol/L (136-145) 06/16/21 06:38 Potassium 4.0 mmol/L (3.5-5.1) 06/16/21 06:38 Chloride 102 mmol/L (98-107) 06/16/21 06:38 Carbon Dioxide 30 mmol/L (22-29) H 06/16/21 06:38 Anion Gap 12.0 (5-19) 06/16/21 06:38 BUN 17 mg/dL (8-23) 06/16/21 06:38 Creatinine 0.6 mg/dL (0.7-1.2) L 06/16/21 06:38 GFR Calculation Not Reportable 06/16/21 06:38 Glucose 144 mg/dL (65-115) H 06/16/21 06:38 POC Glucose 144 mg/dL (70-110) H 06/15/21 09:44 Calculated Osmolality 294 mOsm/kg (285-295) 06/16/21 06:38 Calcium 9.4 mg/dL (8.5-10.5) 06/16/21 06:38 Total Bilirubin 0.2 mg/dL (0.15-1.2) 06/16/21 06:38 AST 12 U/L (0-40) 06/16/21 06:38 ALT 13 U/L (0-41) 06/16/21 06:38 Alkaline Phosphatase 60 IU/L (40-130) 06/16/21 06:38 Total Protein 6.4 g/dL (6.6-8.7) L 06/16/21 06:38 Albumin 4.0 g/dL (3.5-5.2) 06/16/21 06:38 Globulin 2.4 g/dL (1.3-4.6) 06/16/21 06:38 Vitals Last Vital Signs Temp 98.3 F 06/18/21 04:00 Pulse 97 06/18/21 08:46 Resp 16 06/18/21 08:46 BP 131/62 06/18/21 08:46 Pulse Ox 93 06/18/21 08:46 Discharge Plan Discharge Patient Disposition: Home Condition: Stable Prescriptions: Continued rosuvastatin 20 mg tablet 10 mg PO BEDTIME 0RF albuterol sulfate [Ventolin HFA] 90 mcg/actuation HFA aerosol inhaler 1 puff INHALATION QID PRN (Reason: shortness of breath or wheezing) Qty: 18 3RF Stiolto Respimat 2.5-2.5 mcg/actuation mist 2 puff INHALATION DAILY 90 Days Qty: 12 3RF Discharge Orders: Discharge Order (Routine); Ordered 06/18/21 Ordered By: Judah Echeverria Discharge Diet: Usual diet Discharge Activity: Resume usual activity Patient Instructions: Opioid Safety Activity Restrictions/Additional Instructions: No Restriction Discharge Attestations Time Spent in Discharge Care*: greater than 30 min Quality Metrics Clinical Quality Measures [ No reported AMI, CVA or VTE this stay] Coding Level of Care Code Acute Chg FW DC note Diagnoses Chronic obstructive pulmonary disease J44.9 Chronic respiratory failure with hypoxia J96.11 Nausea and vomiting R11.2 Hyperlipidemia E78.5 Time Spent (min) 35
--- NOTE | 2021-06-18 10:24 | PC.NURSE ---
patient [facility] at this time transported by family
== END 2021-06-18 10:24 | disposition home or self-care (01) | DRG 164 ==
LOC: ICU 13:59
PROVIDERS: Admitting Provider Internal Medicine Critical Care Medicine; PCP Family Medicine; Visit Provider Internal Medicine Critical Care Medicine
PROC: 0BH Respiratory System, Insertion (ICD-10-PCS; CPT 31647; principal; 2021-06-14 10:30)
DX: J43.9 Emphysema, unspecified (principal); J96.11 Chronic respiratory failure with hypoxia; J98.11 Atelectasis; J95.811 Postprocedural pneumothorax; R91.8 Other nonspecific abnormal finding of lung field; Z86.11 Personal history of tuberculosis; Z87.891 Personal history of nicotine dependence; J47.9 Bronchiectasis, uncomplicated; R11.2 Nausea with vomiting, unspecified; Z99.81 Dependence on supplemental oxygen; E78.5 Hyperlipidemia, unspecified; Z79.51 Long term (current) use of inhaled steroids
CPT/HCPCS: 31647; 36416; 71045; 80053; 82962; 85025; 93005; 94640; 96372; 97110; 97161; C1713; C9113; J0330; J1100; J1650; J2405; J2704; J3010; J3490; J7030; J7512; J7626

== ENCOUNTER → 2021-06-27 08:03 | Outpatient (BNVA) | payer OTHER, SELFPAY | PROVIDERS: PCP Family Medicine; Visit Provider Internal Medicine Critical Care Medicine | DX: J44.9 Chronic obstructive pulmonary disease, unspecified (principal); J93.9 Pneumothorax, unspecified; J96.11 Chronic respiratory failure with hypoxia; R91.1 Solitary pulmonary nodule; Z87.891 Personal history of nicotine dependence; Z99.81 Dependence on supplemental oxygen | CPT/HCPCS: 71046; 99214 ==

== ENCOUNTER → 2021-07-21 09:44 | Outpatient (BNVA) | payer OTHER, SELFPAY | PROVIDERS: PCP Family Medicine; Visit Provider Internal Medicine Critical Care Medicine | DX: J44.9 Chronic obstructive pulmonary disease, unspecified (principal); J93.9 Pneumothorax, unspecified; J96.11 Chronic respiratory failure with hypoxia; R91.1 Solitary pulmonary nodule; Z87.891 Personal history of nicotine dependence; Z99.81 Dependence on supplemental oxygen | CPT/HCPCS: 99214 ==

== ENCOUNTER 2021-07-21 10:48 | Outpatient (CLI) | payer OTHER, SELFPAY ==
--- NOTE | 2021-07-21 14:44 | PFTS_ITS ---
Date of Study:07/21/21 Date of Dictation: 07/25/2021 MECHANICS: Postbronchodilator forced vital capacity (FVC) is reduced 2.16 L 56% predicted Postbronchodilator forced expiratory volume in one second (FEV1) is severely reduced. 1.09 L 37% predicted FEV1/FVC is reduced. There is no significant bronchodilator response. FLOW VOLUME LOOP: Slanting of expiratory limb suggestive of severe airflow obstruction . LUNG VOLUMES: Total lung capacity (TLC) is normal. Residual volume (RV) is increased suggestive of mild air trapping. DIFFUSING CAPACITY FOR CARBON MONOXIDE: Severely reduced 39 % INTERPRETATION: The pulmonary function tests are consistent with severe airflow obstruction on spirometry with no significant bronchodilator response. There is mild air trapping on lung volumes and severe gas transfer defect consistent with severe COPD/emphysema. Correlate clinically. MTDD
== END 2021-07-21 10:49 | disposition home or self-care (01) ==
LOC: RT 10:49
PROVIDERS: PCP Family Medicine; Visit Provider Internal Medicine Critical Care Medicine
DX: J44.9 Chronic obstructive pulmonary disease, unspecified (principal)
CPT/HCPCS: 94060; 94618; 94726; 94729

== ENCOUNTER → 2021-10-21 09:12 | Outpatient (BNVA) | payer OTHER, SELFPAY | PROVIDERS: PCP Family Medicine; Visit Provider Internal Medicine Critical Care Medicine | DX: J44.9 Chronic obstructive pulmonary disease, unspecified (principal); J96.11 Chronic respiratory failure with hypoxia; R91.1 Solitary pulmonary nodule; Z87.891 Personal history of nicotine dependence; Z99.81 Dependence on supplemental oxygen | CPT/HCPCS: 99214 ==

== ENCOUNTER → 2022-06-09 10:21 | Outpatient (BNVA) | payer OTHER, SELFPAY | PROVIDERS: PCP Family Medicine; Visit Provider Internal Medicine Pulmonary Disease | DX: J44.9 Chronic obstructive pulmonary disease, unspecified (principal); J96.11 Chronic respiratory failure with hypoxia; Z87.891 Personal history of nicotine dependence; Z99.81 Dependence on supplemental oxygen | CPT/HCPCS: 99214 ==

== ENCOUNTER → 2022-12-11 12:56 | Outpatient (BNVA) | payer OTHER, SELFPAY | PROVIDERS: PCP Family Medicine; Visit Provider Internal Medicine Pulmonary Disease | DX: J44.9 Chronic obstructive pulmonary disease, unspecified (principal); J96.11 Chronic respiratory failure with hypoxia; Z87.891 Personal history of nicotine dependence; Z99.81 Dependence on supplemental oxygen | CPT/HCPCS: 99214 ==

== ENCOUNTER → 2023-06-20 14:39 | Outpatient (BNVA) | payer OTHER, SELFPAY | PROVIDERS: PCP Family Medicine; Visit Provider Dermatology | DX: I87.2 Venous insufficiency (chronic) (peripheral) (principal); D22.4 Melanocytic nevi of scalp and neck; L82.1 Other seborrheic keratosis; L98.8 Other specified disorders of the skin and subcutaneous tissue; L72.0 Epidermal cyst; L71.1 Rhinophyma; D17.21 Benign lipomatous neoplasm of skin and subcutaneous tissue of right arm; L57.8 Other skin changes due to chronic exposure to nonionizing radiation | CPT/HCPCS: 99204 ==

== ENCOUNTER → 2023-08-21 12:33 | Outpatient (BNVA) | payer OTHER, SELFPAY | PROVIDERS: PCP Family Medicine; Visit Provider Internal Medicine Pulmonary Disease | DX: J44.9 Chronic obstructive pulmonary disease, unspecified (principal); J96.11 Chronic respiratory failure with hypoxia; R91.1 Solitary pulmonary nodule; R04.2 Hemoptysis; Z87.891 Personal history of nicotine dependence; Z99.81 Dependence on supplemental oxygen | CPT/HCPCS: 99214 ==

== ENCOUNTER 2023-10-02 14:17 | Outpatient (CLI) | payer OTHER, SELFPAY ==
--- NOTE | 2023-10-02 14:21 | CT_ITS ---
WS: [id number] CT chest w con* [id number] HISTORY: HX LOBECTOMY R AXILLA LN/R BREAST MASS TECHNIQUE: Axial imaging performed through the thorax. Coronal and sagittal reformats are submitted. All CT scans at [facility] use at least one of these dose optimization techniques: automated exposure control; mA and/or kV adjustment per patient size (includes targeted exams where dose is mat ched to clinical indication); or iterative reconstruction. CONTRAST: Omnipaque 350; 100 mL IV. DLP: 352.89 mGy.cm COMPARISON: 01/08/2020, 03/23/2020 Lungs and central airway: Chronic emphysema. There is a soft tissue mass in the inferior medial LEFT thorax. By history patient has undergone a prior lobectomy. The residual soft tissue appears to be at electatic lung. This is a new finding since the prior study. Thoracic surgical clips also present at the LEFT hilum and proximal LEFT lower lobe bronchus. No discrete mass. Pleura: Normal. No pleural effusion. Heart and pericardium: Mild cardiomegaly. Mediastinum and sathya: Very mildly prominent lymphoid tissue at the hilum and mediastinum. Vessels: Moderate atherosclerotic plaque. Nonaneurysmal dilatation of the aorta. Normal size pulmonar y artery. Chest wall and lower neck: No axillary lymph nodes are identified. There is increased soft tissue ass ociated with the RIGHT chest wall and breast measuring 2.7 x 1.5 cm. This was not present on the stud y of 03/23/2020. Overall the soft tissues in the RIGHT axilla and along the RIGHT chest wall are very slightly edematous with mild infiltration of the fat as compared to the LEFT. Upper abdomen: Normal. Osseous structures: Mild anterior wedging of T12. CT/CT chest w con* [id number] IMPRESSION: 1. Focal RIGHT chest wall mass at the level of the breast tissue measuring 2.7 x 1.5 cm. The adjacent soft tissues are also very slightly edematous. Recommen d follow-up ultrasound evaluation of the soft tissue mass. Neoplasm versus gyne comastia. 2. Soft tissue mass at the LEFT lung base. By history there is been a prior lo bectomy. Surgical clips are identified centrally. This may've been a partial lo bectomy as there does appear to be some remaining atelectatic lung. No mass is identified. 3. No mediastinal or hilar adenopathy. 4. No axillary lymphadenopathy. If there is a palpable RIGHT axillary lymph no de this can also be evaluated by ultrasound.
[2023-10-02 15:16] LABS: Blood Urea Nitrogen 9 mg/dL (8-23)
[2023-10-02] MEDS: iohexol 350 mg/mL 500 mL Btl (per mL) IV (15:22)
== END 2023-10-02 14:18 | disposition home or self-care (01) ==
LOC: RAD 14:18
PROVIDERS: PCP Family Medicine; Visit Provider Family Medicine
DX: Z01.89 Encounter for other specified special examinations (principal); J43.8 Other emphysema; R91.8 Other nonspecific abnormal finding of lung field; I51.7 Cardiomegaly; M79.9 Soft tissue disorder, unspecified; M48.54XA Collapsed vertebra, not elsewhere classified, thoracic region, initial encounter for fracture
CPT/HCPCS: 71260; 82565; 84520; Q9967